=== PATIENT | female | born 1975 ===

== ENCOUNTER 2017-06-25 17:30 | Emergency (ER) | payer MEDICAID ==
[2017-06-25 17:36] VITALS: BP 120/67; PULSE 97; RESP 18; TEMP 98; O2SAT 100
[2017-06-25] MEDS ORDERED: Lidocaine 5% Patch TD STA (17:43)
--- NOTE | 2017-06-25 18:02 | ED PDOC ---
HPI: Back Time Seen by Provider: 06/25/17 17:35 Chief Complaint (Nursing): Back Pain History Per: Patient Additional Complaint(s): Pt. states since she's had atraumatic L sided lower back pain radiating down the L leg. Reports that pain began after cleaning her house. States she spent the majority of the day bent forward cleaning her house and afterwards she developed the pain and has since progressively worsened. Denies trauma, weakness, dysuria, hematuria, incontinence, N/V/D, fever, abdominal pain. Of note, pt. has not used any meds to help relieve symptoms. Past Medical History Reviewed: Historical Data, Nursing Documentation, Vital Signs Vital Signs: Last Vital Signs Temp 98 F 06/25/17 17:35 Pulse 97 H 06/25/17 17:35 Resp 18 06/25/17 17:35 BP 120/67 06/25/17 17:35 Pulse Ox 100 06/25/17 17:35 - Surgical History Surgical History: No Surg Hx - Family History Family History: States: No Known Family Hx - Home Medications Home Medications: Ambulatory Orders Medication Instructions Recorded Cyclobenzaprine [Cyclobenzaprine 10 mg PO Q8 PRN #30 tab 06/25/17 HCl] Methylprednisolone [Medrol Dose 4 mg PO DAILY #21 mg 06/25/17 Pack (21 tabs)] Naproxen [Naprosyn] 500 mg PO BID PRN #30 tab 06/25/17 - Allergies Allergies/Adverse Reactions: Allergies Allergy/AdvReac Type Severity Reaction Status Date / Time No Known Allergies Allergy Verified 06/25/17 17:34 Review of Systems ROS Statement: Except As Marked, All Systems Reviewed And Found Negative Musculoskeletal: Positive for: Back Pain Physical Exam - Physical Exam Appears: Positive for: Well, Non-toxic, In Acute Distress (mild painful distress ) Skin: Positive for: Normal Color, Warm. Negative for: Rash Eye Exam: Positive for: Normal appearance Gastrointestinal/Abdominal: Positive for: Normal Exam, Soft. Negative for: Tenderness Back: Positive for: Normal Inspection, Decreased ROM, Muscle Spasm (L sided paralumbar muscle tenderness with spasm), Other (SLR positive in L leg at approximately 30 degrees). Negative for: L CVA Tenderness, R CVA Tenderness, Vertebral Tenderness Extremity: Negative for: Calf Tenderness (b/l) Neurologic/Psych: Positive for: Alert, Oriented, Gait (steady, unassisted). Negative for: Aphasia, Facial Droop - ECG O2 Sat by Pulse Oximetry: 100 - Progress ED Course And Treament: Toradol 30mg IM, valium 10mg PO, lidoderm patch ordered. On re-evaluation, pt. reports moderate analgesia. Gait steady unassisted. Disposition - Clinical Impression Clinical Impression: Low back pain - Patient ED Disposition Is Patient to be Admitted: No - Disposition Referrals: Asher Sánchez [Outside] Disposition: Routine/Home Disposition Time: 18:29 Condition: STABLE Additional Instructions: Follow up with PMD for further evaluation Return to ED immediately if symptoms worsen Prescriptions: Cyclobenzaprine [Cyclobenzaprine HCl] 10 mg PO Q8 PRN #30 tab PRN Reason: Muscle Spasm Methylprednisolone [Medrol Dose Pack (21 tabs)] 4 mg PO DAILY #21 mg Naproxen [Naprosyn] 500 mg PO BID PRN #30 tab PRN Reason: Pain Instructions: Low Back Pain (DC), Back Exercises Forms: [employer] (Argentine) Print Language: SAUDI ARABIAN
[2017-06-25] MEDS ORDERED: Lidocaine 5% Patch TD ONE (18:03)
== END 2017-06-25 18:39 | disposition home or self-care (01) ==
LOC: H.ER 17:30
DX: M54.5 Low back pain (principal)
CPT/HCPCS: 81025; 96372; 99282; J1885

== ENCOUNTER 2018-01-12 11:41 | Emergency (ER) | payer MEDICAID ==
[2018-01-12 12:03] VITALS: BP 97/60; PULSE 86; RESP 16; TEMP 98.4; O2SAT 99
[2018-01-12 12:04] VITALS: BMI 38.9
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
== END 2018-01-12 14:14 | disposition home or self-care (01) ==
LOC: H.ER 11:41
DX: M54.9 Dorsalgia, unspecified (principal); M54.2 Cervicalgia; V43.62XA Car passenger injured in collision with other type car in traffic accident, initial encounter; Y92.410 Unspecified street and highway as the place of occurrence of the external cause
CPT/HCPCS: 81025; 96372; 99283; J1885